=== PATIENT | male | born 1985 | race African-American/Black ===

== ENCOUNTER 2017-05-24 19:53 | Emergency (ER) | payer OTHER ==
[2017-05-24 20:20] VITALS: BP 136/90
[2017-05-24] MEDS ORDERED: OXYCODONE-ACETAMINOPHEN 5-325 MG TABLET PO ONE (20:54)
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
== END 2017-05-24 21:58 | disposition home or self-care (01) ==
LOC: ER 19:53
DX: M54.5 Low back pain (principal); V43.52XA Car driver injured in collision with other type car in traffic accident, initial encounter; F17.210 Nicotine dependence, cigarettes, uncomplicated
CPT/HCPCS: 72131; 99283

== ENCOUNTER 2018-02-24 17:44 | Emergency (ER) | payer SELFPAY ==
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
[2018-02-24 19:46] VITALS: BP 125/89
== END 2018-02-24 20:10 | disposition home or self-care (01) ==
LOC: ER 17:44
DX: S01.81XD Laceration without foreign body of other part of head, subsequent encounter (principal); S01.01XD Laceration without foreign body of scalp, subsequent encounter; S61.012D Laceration without foreign body of left thumb without damage to nail, subsequent encounter; X58.XXXD Exposure to other specified factors, subsequent encounter; Z65.5 Exposure to disaster, war and other hostilities; F17.210 Nicotine dependence, cigarettes, uncomplicated; Z71.6 Tobacco abuse counseling

== ENCOUNTER 2018-07-25 18:32 | Emergency (ER) | payer OTHER ==
[2018-07-25 18:38] VITALS: BP 151/84
[2018-07-25] MEDS ORDERED: KETOROLAC TROMETHAMINE 60 MG/2 ML SDV IM ONE (18:48)
[2018-07-25] MEDS ORDERED: METHOCARBAMOL 500 MG TABLET PO ONE (18:48)
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
== END 2018-07-25 19:11 | disposition home or self-care (01) ==
LOC: ER 18:32
DX: M54.5 Low back pain (principal); V87.7XXA Person injured in collision between other specified motor vehicles (traffic), initial encounter; F17.210 Nicotine dependence, cigarettes, uncomplicated
CPT/HCPCS: 99406; 99283; 96372; J1885